=== PATIENT | female | born 1995 | race Hispanic/Latino ===

== ENCOUNTER 2018-08-12 19:39 | Emergency (ER) | payer OTHER ==
[~2018-08-12] VITALS: Ht 162.6 cm; Wt 59.1 kg
[~2018-08-12 19:39] MED LIST: CALNA PO; PRENATA3 PO
[2018-08-12 20:12] LABS: URINE BILIRUBIN - DIPSTICK NEGATIVE (NEGATIVE); URINE BLOOD DIPSTICK MODERATE (NEGATIVE); URINE COLOR ORANGE; URINE GLUCOSE - DIPSTICK 250 mg/dL (NEGATIVE); URINE KETONE TRACE mg/dL (NEGATIVE); URINE LEUK ESTERASE MODERATE (Negative); URINE NITRITE - DIPSTICK POSITIVE (Negative); URINE PROTEIN - DIPSTICK 100 mg/dL (NEG-TRACE)
[2018-08-12 20:13] LABS: URINE CLARITY CLOUDY
[2018-08-12 20:16] LABS: BARBITURATES NEGATIVE (NEGATIVE); COCAINE NEGATIVE (NEGATIVE); METHADONE NEGATIVE (NEGATIVE); OXCYCODONE NEGATIVE (NEGATIVE); TETRAHYDROCANNABIONOL NEGATIVE (NEGATIVE); TRICYLIC ANTIDEPRESSANTS NEGATIVE (NEGATIVE)
[2018-08-12 20:18] LABS: URINE BACTERIA MANY hpf; URINE SQUAMOUS EPITHELIAL CELL FEW EPI/hpf (0-FEW); URINE WBC 20-50 WBC/hpf (0-5)
[2018-08-12] MEDS ORDERED: KEFLEX500 M1 PO (20:40)
[2018-08-12] MEDS ORDERED: PYRIDIUM200 MG PO (20:40)
[2018-08-12 20:45] VITALS: BP 120/77
== END 2018-08-12 20:45 | disposition home or self-care (01) | DRG 690 ==
LOC: ED 19:39
DX: N39.0 Urinary tract infection, site not specified (principal); B96.20 Unspecified Escherichia coli [E. coli] as the cause of diseases classified elsewhere

== ENCOUNTER 2021-02-03 16:24 | Emergency (ER) | payer OTHER ==
[~2021-02-03] VITALS: Ht 162.6 cm; Wt 70.0 kg
[~2021-02-03 16:24] MED LIST changes: +KEFLEX500 M1 PO; +PYRIDIUM200 MG PO
[2021-02-03] MEDS ORDERED: KEFLEX500 MG PO (17:58)
[2021-02-03 18:11] VITALS: BP 116/78
== END 2021-02-03 18:15 | disposition home or self-care (01) | DRG 603 ==
LOC: ED 16:24
DX: L03.032 Cellulitis of left toe (principal)

== ENCOUNTER 2021-10-12 07:44 | Day surgery (SDC) | payer BC ==
[~2021-10-12] VITALS: Ht 162.6 cm; Wt 63.5 kg
[~2021-10-12 07:44] MED LIST changes: +KEFLEX500 MG PO; +NEXPLANON SD; +NEXPLANON68 MG SC
[2021-10-12] MEDS ORDERED: PERCOCET 5/321 COMBO PO (09:01)
[2021-10-12 13:35] VITALS: BP 108/73
== END 2021-10-12 12:05 | disposition home or self-care (01) | DRG 419 ==
LOC: ORM 07:44
PROVIDERS: ATTEND Surgery
PROC: 0FT44ZZ Resection of Gallbladder, Percutaneous Endoscopic Approach (ICD-10-PCS; principal; 2021-10-12)
DX: K81.1 Chronic cholecystitis (principal)
CPT/HCPCS: J0131; J1610; Q9967